=== PATIENT | female | born 1970 | race Caucasian/White ===

== ENCOUNTER 2018-02-07 20:00 | Inpatient (IN) | payer BC ==
[~2018-02-07] VITALS: Ht 165.1 cm; Wt 61.0 kg
--- NOTE | ~2018-02-07 | CON ---
[place], [place] REPORT OF CONSULTATION NAME: JAJA RIDER UNIT #: [id number] ROOM: [facility] DOCTOR: CANDIDO, PHD TAZ BIRTHDATE: [birth year] DOS: 02/08/2018 HISTORY OF PRESENT ILLNESS: The patient is a 47-year-old female referred by the hospitalist following a suicide attempt via overdosing. She took 10-12 Unisom 25 mg, 20 Lexapro 10 mg and two Restoril 30 mg. She stated she was mad at her and took them in front of him in order to hurt him rather than to hurt herself. She has been to her for 28 years and they have three children. She works as a nurse. She smokes cigarettes, drinks alcohol socially and denies illegal drug use. PAST MEDICAL HISTORY: Depression, anxiety, hysterectomy. MEDICATIONS: Vitamin D, Lovenox. PHYSICAL EXAMINATION: The patient was awake, alert and oriented x 3. Eye contact and social skills were good. Affect was tearful intermittently. Mood was depressed. She firmly denied suicidal ideation, plan, and intent. She denied any desire for . She stated that she impulsively overdosed on her medication in order to get a response from her with whom she has been having conflict. She had seen Mc Bhatt, Ph.D. at [facility] in her 20s and had reached out to make an appointment with him prior earlier in that day. Her has since made an appointment for her on Wednesday at 05:15. She denied a history of self-harm or other suicide attempts. Speech and language were within normal limits. Thought content and process were normal. Insight and judgment were fair. I spoke with the patient's and daughter, both of whom state that they believe the patient's overdose was "cry for help." They do not believe she has an imminent risk to herself and are not concerned for her to be discharged home. The patient's has firearms in the home, but they are secured and the patient does not have access to them. In my opinion, the patient does not appear to be an imminent risk to herself. She firmly denies current SI. She firmly denies current suicidal ideation and a desire for . She was able to contract for safety and has an outpatient appointment with her psychologist on Wednesday at 05:15. DIAGNOSIS: Major depressive disorder, recurrent, severe. RECOMMENDATIONS: Continue followup with her outpatient psychologist. Continue psychiatric management. She gets her psychiatric medications from the nurse practitioner at her place of employment. She works as a nurse. Thank you very much for this consult. [place], [place] REPORT OF CONSULTATION NAME: JAJA RIDER UNIT #: [id number] ROOM: [facility] DOCTOR: CANDIDO, PHD TAZ BIRTHDATE: [birth year] Anupama Werner, PhD CM:CONSTR:REPORT OF CONSULTATION 1711 02/09/18 0028 interface
--- NOTE | ~2018-02-07 | EKG ---
[place], [place] ELECTROCARDIOGRAM REPORT NAME: JAJA RIDER UNIT #: [id number] ROOM: [facility] DOCTOR: PRUDENCE DRAFT REPORT BIRTHDATE: [birth year] [facility] Test Date: 2018-02-07 Test Time: 21:24:50 Pat Name: JAJA RIDER Department: ER Room: [facility] Gender: F Biofuels Plant Manager: Meg Porter : 1970 Requested By: MATTHEW PATE Order Number: [id number] Reading MD: Anita Gan MD Measurements Intervals [place] Rate: 74 P: 62 [place]: 152 QRS: 41 QRSD: 81 T: 25 QT: 426 QTc: 473 Interpretive Statements Sinus rhythm Borderline T abnormalities, anterior leads Electronically Signed On 02-11-2018 11:07:50 PDT by Anita Gan MD CM:EKGRPT:ELECTROCARDIOGRAM REPORT 23 [id number] MATTHEW PTAE EPIPHANY DRAFT REPORT MATTHEW PATE
--- NOTE | ~2018-02-07 | EKG ---
[place], [place] ELECTROCARDIOGRAM REPORT NAME: JAJA RIDER UNIT #: [id number] ROOM: [facility] DOCTOR: PRUDENCE DRAFT REPORT BIRTHDATE: [birth year] [facility] Test Date: 2018-02-08 Test Time: 09:47:10 Pat Name: JAJA RIDER Department: Room: [place] [address] Gender: F Pump Room Operator: Bertha Devlin : 1970 Requested By: KIM BARBER Order Number: [id number] Reading MD: Anita Gan MD Measurements Intervals [place] Rate: 69 P: 76 [place]: 150 QRS: 48 QRSD: 82 T: 48 QT: 449 QTc: 481 Interpretive Statements Sinus rhythm Electronically Signed On 02-11-2018 11:09:00 PDT by Anita Gan MD CM:EKGRPT:ELECTROCARDIOGRAM REPORT [id number] KIM MARQUIS DRAFT REPORT KIM BARBER DO
--- NOTE | ~2018-02-07 | EKG ---
[place], [place] ELECTROCARDIOGRAM REPORT NAME: JAJA RIDER UNIT #: [id number] ROOM: [facility] DOCTOR: PRUDENCE DRAFT REPORT BIRTHDATE: [birth year] [facility] Test Date: 2018-02-08 Test Time: 01:45:52 Pat Name: JAJA RIDER Department: Room: [place] [address] Gender: F Conservation Technician: Meg Porter : 1970 Requested By: KIM BARBER Order Number: [id number] Reading MD: Anita Gan MD Measurements Intervals [place] Rate: 67 P: 71 [place]: 155 QRS: 53 QRSD: 86 T: 46 QT: 468 QTc: 494 Interpretive Statements Sinus rhythm Borderline prolonged QT interval Electronically Signed On 02-11-2018 11:08:18 PDT by Anita Gan MD CM:EKGRPT:ELECTROCARDIOGRAM REPORT [id number] KIM MARQUIS DRAFT REPORT KIM BARBER DO
--- NOTE | ~2018-02-07 | EKG ---
[place], [place] ELECTROCARDIOGRAM REPORT NAME: JAJA RIDER UNIT #: [id number] ROOM: [facility] DOCTOR: PRUDENCE DRAFT REPORT BIRTHDATE: [birth year] [facility] Test Date: 2018-02-08 Test Time: 06:48:05 Pat Name: JAJA RIDER Department: Room: [place] [address] Gender: F Vice President Biostatistics: Bertha Devlin : 1970 Requested By: KIM BARBER Order Number: [id number] Reading MD: Anita Gan MD Measurements Intervals [place] Rate: 67 P: 68 [place]: 153 QRS: 51 QRSD: 81 T: 46 QT: 454 QTc: 480 Interpretive Statements Sinus rhythm Electronically Signed On 02-11-2018 11:08:25 PDT by Anita Gan MD CM:EKGRPT:ELECTROCARDIOGRAM REPORT [id number] KIM MARQUIS DRAFT REPORT KIM BARBER DO
[2018-02-07 20:01] VITALS: BP 146/80
[2018-02-07 20:30] VITALS: BP 109/79
[2018-02-07 20:30] LABS: BASO % 0.3 % (0.0-1.0); EOS % 0.6 % (1.0-4.0); HEMATOCRIT 43.6 % (37.0-47.0); HEMOGLOBIN 14.6 g/dl (12.0-16.0); LYMPH # 2.1 10*3/uL (1.3-4.4); LYMPH % 31.4 % (27.0-41.0); MEAN CELL VOLUME 91.2 fl (81.0-99.0); MEAN CORPUSCULAR HGB 30.5 pg (27.0-31.0); MEAN CORPUSCULAR HGB CONC 33.5 g/dl (33.0-37.0); MEAN PLATELET VOLUME 11.3 fl (9.6-12.3); MONO # 0.4 10*3/uL (0.1-1.0); MONO % 6.5 % (3.0-9.0); NEUT # 4.1 10*3/uL (2.3-7.9); NEUT % 60.9 % (47.0-73.0); PLATELET COUNT AUTOMATED 265 10*3/uL (130-400); RED BLOOD COUNT 4.78 10*6/uL (4.10-5.10); RED CELL DISTRI WIDTH 12.8 % (0-14.5); WHITE BLOOD COUNT 6.7 10*3/uL (4.8-10.8)
[2018-02-07 20:50] LABS: ALBUMIN 4.1 gm/dl (3.1-4.5); ALKALINE PHOSPHATASE 114 U/L (45-117); BUN 14 mg/dl (7-24); CHLORIDE 103 mmol/L (98-107); CREATININE 0.78 mg/dL (0.55-1.02); POTASSIUM 3.7 mmol/L (3.5-5.1); SGOT/AST 25 IU/L (3-35); SGPT/ALT 25 U/L (12-78); SODIUM 139 mmol/L (136-145); TOTAL PROTEIN 8.1 gm/dL (6.4-8.2)
[2018-02-07 20:56] LABS: ACETAMINOPHEN (TYLENOL) < 2.0 ug/ml (10-30); ETHYL ALCOHOL < 3.0 mg/dl (<3)
[2018-02-07 21:00] VITALS: BP 114/77
[2018-02-07 21:10] LABS: BILIRUBIN NEGATIVE (NEGATIVE); BLOOD NEGATIVE (NEGATIVE); CLARITY CLEAR (CLEAR); COLOR YELLOW (YELLOW); GLUCOSE NEGATIVE (NEGATIVE); KETONE TRACE (NEGATIVE); LEUKO ESTERASE TRACE (NEGATIVE); NITRITE NEGATIVE (NEGATIVE); SPECIFIC GRAVITY <= 1.005 (1.005-1.030); UROBILINOGEN 0.2 E.U./dl (0.2-1.0)
[2018-02-07 21:18] LABS: RBC 0-2 rbc/hpf (0-2)
[2018-02-07 21:20] LABS: URINE AMPHETAMINES < 1000 (1000ng/ml); URINE BARBITURATES < 200 (200ng/ml); URINE BENZODIAZEPINES < 200 (200ng/ml); URINE CANNABINOIDS (THC) < 50 (50ng/ml); URINE COCAINE < 300 (300ng/ml); URINE METHADONE < 300 (300ng/ml); URINE OPIATES < 300 (300ng/ml)
[2018-02-07 21:22] LABS: URINE PHENCYCLIDINE < 25 (25ng/ml)
[2018-02-07 21:30] VITALS: BP 117/85
[2018-02-07] MEDS ORDERED: LEXAPRO10 MG PO (21:51)
[2018-02-07] MEDS ORDERED: RESTORIL30 M1 PO (21:52)
[2018-02-07] MEDS ORDERED: UNISOM SLEEP AI25 MG PO (21:52)
[2018-02-07 22:00] VITALS: BP 109/74
[2018-02-07 22:20] VITALS: BP 121/73
[2018-02-08] VITALS: BP 95/59
[2018-02-08 02:22] LABS: BUN 13 mg/dl (7-24); CHLORIDE 109 mmol/L (98-107); POTASSIUM 4.4 mmol/L (3.5-5.1); SODIUM 141 mmol/L (136-145)
[2018-02-08 02:36] LABS: VITAMIN D, 25-HYDROXY 23.2 ng/mL (30-100)
[2018-02-08 04:00] VITALS: BP 104/52
[2018-02-08 05:39] LABS: BASO % 0.6 % (0.0-1.0); EOS # 0.1 10*3/uL (0.0-0.4); EOS % 1.6 % (1.0-4.0); LYMPH % 39.1 % (27.0-41.0); MEAN CELL VOLUME 92.6 fl (81.0-99.0); MEAN CORPUSCULAR HGB 30.4 pg (27.0-31.0); MEAN CORPUSCULAR HGB CONC 32.8 g/dl (33.0-37.0); MONO # 0.5 10*3/uL (0.1-1.0); MONO % 9.2 % (3.0-9.0); NEUT # 2.5 10*3/uL (2.3-7.9); NEUT % 48.9 % (47.0-73.0); PLATELET COUNT AUTOMATED 206 10*3/uL (130-400); RED BLOOD COUNT 4.05 10*6/uL (4.10-5.10); RED CELL DISTRI WIDTH 12.8 % (0-14.5); WHITE BLOOD COUNT 5.1 10*3/uL (4.8-10.8)
[2018-02-08 05:54] LABS: HEMATOCRIT 37.5 % (37.0-47.0); HEMOGLOBIN 12.3 g/dl (12.0-16.0)
[2018-02-08 06:01] LABS: ALBUMIN 3.1 gm/dl (3.1-4.5); BUN 11 mg/dl (7-24); CHLORIDE 113 mmol/L (98-107); CHOLESTEROL 145 mg/dL (<200); CREATININE 0.56 mg/dL (0.55-1.02); PHOSPHOROUS 3.5 mg/dL (2.5-4.9); SGOT/AST 12 IU/L (3-35); SGPT/ALT 17 U/L (12-78); SODIUM 144 mmol/L (136-145); TRIGLYCERIDES 61 mg/dl (<150); VLDL CHOLESTEROL 12 mg/dL (6-40)
[2018-02-08 06:10] LABS: ALKALINE PHOSPHATASE 85 U/L (45-117); HDL CHOLESTEROL 47 mg/dl (40-60); LDL CHOLESTEROL 86 mg/dL (9-159); TOTAL PROTEIN 6.1 gm/dL (6.4-8.2)
[2018-02-08 08:00] VITALS: BP 126/84
[2018-02-08 10:41] LABS: BUN 11 mg/dl (7-24); CHLORIDE 112 mmol/L (98-107); CREATININE 0.65 mg/dL (0.55-1.02); POTASSIUM 4.2 mmol/L (3.5-5.1); SODIUM 143 mmol/L (136-145)
[2018-02-08 12:00] VITALS: BP 98/62
== END 2018-02-08 13:52 | disposition home or self-care (01) | DRG 917 ==
LOC: ED 20:00 → ICCU 22:01
PROVIDERS: Internal Medicine; Nurse Practitioner Family
DX: T45.0X2A Poisoning by antiallergic and antiemetic drugs, intentional self-harm, initial encounter (principal); G92 Toxic encephalopathy; R45.851 Suicidal ideations; F33.2 Major depressive disorder, recurrent severe without psychotic features; F41.9 Anxiety disorder, unspecified; T43.222A Poisoning by selective serotonin reuptake inhibitors, intentional self-harm, initial encounter; T42.4X2A Poisoning by benzodiazepines, intentional self-harm, initial encounter; Y92.89 Other specified places as the place of occurrence of the external cause; Z79.899 Other long term (current) drug therapy; Z90.710 Acquired absence of both cervix and uterus; Z71.6 Tobacco abuse counseling; Z72.0 Tobacco use; Z82.49 Family history of ischemic heart disease and other diseases of the circulatory system; Z80.6 Family history of leukemia